=== PATIENT | female | born 1990 | race Native Hawaiian/Other Pacific Islander ===

== ENCOUNTER 2024-02-13 15:09 | Outpatient (CLI) | payer BC, SELFPAY | END 2024-02-13 15:10 | disposition home or self-care (01) | PROVIDERS: PCP Family Medicine; Visit Provider Registered Nurse | DX: N92.6 Irregular menstruation, unspecified (principal); N91.1 Secondary amenorrhea; N97.9 Female infertility, unspecified | CPT/HCPCS: 82670; 83001; 83520; 84146; 84443 ==